=== PATIENT | male | born 1985 | race Hispanic/Latino ===

== ENCOUNTER 2020-03-29 23:21 | Emergency (ER) | payer BC ==
[2020-03-30] MEDS ORDERED: ACETAMINOPHEN EXTRA STRENGTH 500 MG TABLET ONE (00:01)
[2020-03-30] MEDS ORDERED: IBUPROFEN 600 MG TABLET ONE (00:01)
[2020-03-30 00:17] LABS: BASOPHILS % (AUTO) 0.2 % (0.0-5.0); EOSINOPHILS % (AUTO) 0.2 % (0.0-8.0); HEMATOCRIT 47.4 % (42-54); LYMPHOCYTES % (AUTO) 33.6 % (21.0-51.0); MEAN CORPUSCULAR HEMOGLOBIN 28.7 pg (27.0-33.0); MEAN CORPUSCULAR HGB CONC 32.9 g/dL (32.0-36.0); MEAN CORPUSCULAR VOLUME 87.3 fL (79-99); MONOCYTES % (AUTO) 8.7 % (3.0-13.0); NEUTROPHILS % (AUTO) 56.4 % (40.0-77.0); PLATELET COUNT (AUTO) 202 K/uL (130-400); RED BLOOD CELL COUNT(AUTO) 5.43 MIL/uL (4.50-6.20); WHITE BLOOD COUNT (AUTO) 5.5 K/uL (4.8-10.8)
[2020-03-30 00:27] LABS: CREATININE 1.2 mg/dL (0.5-1.5); POTASSIUM 3.3 mmol/L (3.5-5.1)
[2020-03-30] MEDS ORDERED: BENZONATATE 100 MG CAPSULE PO ONE (01:11)
== END 2020-03-30 01:30 | disposition home or self-care (01) ==
LOC: EDH 23:21
DX: U07.1 COVID-19 (principal); B34.9 Viral infection, unspecified; Z88.0 Allergy status to penicillin
CPT/HCPCS: 36415; 71045; 80048; 85025; 87633; 87804 ×2; 99284; U0003

== ENCOUNTER 2021-12-24 07:55 | Emergency (ER) | payer BC ==
[~2021-12-24] VITALS: Ht 185.4 cm; Wt 157.4 kg
[2021-12-24 07:56] VITALS: BP 139/66
[2021-12-24 09:25] LABS: BASOPHILS % (AUTO) 0.3 % (0.0-5.0); EOSINOPHILS % (AUTO) 0.3 % (0.0-8.0); HEMATOCRIT 47.7 % (42-54); LYMPHOCYTES % (AUTO) 17.3 % (21.0-51.0); MEAN CORPUSCULAR HEMOGLOBIN 28.2 pg (27.0-33.0); MEAN CORPUSCULAR HGB CONC 32.7 g/dL (32.0-36.0); MEAN CORPUSCULAR VOLUME 86.1 fL (79-99); NEUTROPHILS % (AUTO) 77.9 % (40.0-77.0); PLATELET COUNT (AUTO) 233 K/uL (130-400); RED BLOOD CELL COUNT(AUTO) 5.54 MIL/uL (4.50-6.20); RED CELL DISTRIBUTION WIDTH 12.7 % (11.0-15.5); WHITE BLOOD COUNT (AUTO) 10.7 K/uL (4.8-10.8)
[2021-12-24] MEDS ORDERED: KETOROLAC 30MG VIAL (30MG/ML) IV ONE (09:30)
[2021-12-24 09:33] LABS: CREATININE 1.1 mg/dL (0.5-1.5)
[2021-12-24 09:37] LABS: ALBUMIN 3.9 g/dL (3.5-5.0); BILIRUBIN,TOTAL 0.7 mg/dL (0.2-1.0); TOTAL PROTEIN, SERUM 8.5 g/dL (6.0-8.3)
[2021-12-24 09:43] LABS: APPEARANCE,URINE CLOUDY (CLEAR); BILIRUBIN,URINE MODERATE (NEGATIVE); COLOR,URINE DARK YELLOW (YELLOW); GLUCOSE, URINE (UA) NEGATIVE (NEGATIVE); KETONES,URINE 15 mg/dL (NEGATIVE); LEUKOCYTE ESTERASE ,URINE NEGATIVE (NEGATIVE); NITRATE,URINE POSITIVE (NEGATIVE); OCCULT BLOOD,URINE LARGE (NEGATIVE); PH,URINE 5.5 (5.0-8.0); PROTEIN,URINE 100 mg/dL (NEGATIVE)
[2021-12-24 09:53] LABS: RBC,URINE TNTC /HPF (0-1)
[2021-12-24 09:54] LABS: BACTERIA,URINE Few /HPF (None Seen); MUCUS,URINE Moderate LPF (None Seen); SQUAMOUS EPITHELIAL CELL,UR Rare /HPF (0-2)
[2021-12-24] MEDS ORDERED: TAMS-1 PO (11:07)
[2021-12-24] MEDS ORDERED: ACET1TAB25 PO (11:07)
== END 2021-12-24 11:38 | disposition home or self-care (01) ==
LOC: EDH 07:55
DX: N20.1 Calculus of ureter (principal); Z88.0 Allergy status to penicillin; Z88.8 Allergy status to other drugs, medicaments and biological substances
CPT/HCPCS: 36415; 74176; 80053; 81001; 83690; 85025; 87088; J1885

== ENCOUNTER 2022-06-22 14:54 | Emergency (ER) | payer BC ==
[~2022-06-22] VITALS: Ht 188 cm; Wt 157.4 kg
[~2022-06-22 14:54] MED LIST: ACET-2079 PO; TAMS-1 PO
[2022-06-22] MEDS ORDERED: CYCLOBENZAPRINE HCL 10 MG TABLET PO ONE (15:30)
[2022-06-22] MEDS ORDERED: KETOROLAC 60 MG VIAL (30MG/ML) IM ONE (15:30)
[2022-06-22] MEDS ORDERED: IBUP-1556 PO (16:03)
[2022-06-22] MEDS ORDERED: CYCL10TA16 PO (16:03)
[2022-06-22 16:39] VITALS: BP 155/82
== END 2022-06-22 16:40 | disposition home or self-care (01) ==
LOC: EDH 14:54
DX: S16.1XXA Strain of muscle, fascia and tendon at neck level, initial encounter (principal); S39.012A Strain of muscle, fascia and tendon of lower back, initial encounter; S86.911A Strain of unspecified muscle(s) and tendon(s) at lower leg level, right leg, initial encounter; W18.39XA Other fall on same level, initial encounter; Y93.89 Activity, other specified; Y92.89 Other specified places as the place of occurrence of the external cause; Y99.8 Other external cause status
CPT/HCPCS: 99284; 72040; 73562; 72100; 96372; J1885

== ENCOUNTER 2022-07-10 14:28 | Emergency (ER) | payer BC ==
[~2022-07-10] VITALS: Ht 185.4 cm; Wt 157.4 kg
[~2022-07-10 14:28] MED LIST changes: +CYCL10TA16 PO; +IBUP-1556 PO
[2022-07-10] MEDS ORDERED: METH4TAB3 PO (17:38)
[2022-07-10 17:46] VITALS: BP 128/71
== END 2022-07-10 17:48 | disposition home or self-care (01) ==
LOC: EDH 14:28
DX: S16.1XXA Strain of muscle, fascia and tendon at neck level, initial encounter (principal); B34.9 Viral infection, unspecified; G44.209 Tension-type headache, unspecified, not intractable; E66.01 Morbid (severe) obesity due to excess calories; Z68.42 Body mass index [BMI] 45.0-49.9, adult; Z88.0 Allergy status to penicillin; Z79.1 Long term (current) use of non-steroidal anti-inflammatories (NSAID); W01.0XXA Fall on same level from slipping, tripping and stumbling without subsequent striking against object, initial encounter; Y93.89 Activity, other specified; Y92.89 Other specified places as the place of occurrence of the external cause; Y99.8 Other external cause status
CPT/HCPCS: 70450; 87804